=== PATIENT | female | born 1990 | race Caucasian/White ===

== ENCOUNTER 2025-02-10 09:56 | Emergency (ER) | payer MEDICAID, OTHER ==
[~2025-02-10] VITALS: Ht 167.6 cm; Wt 104.0 kg
[~2025-02-10 09:56] MED LIST: NITR-87 MT
[2025-02-10 10:06] VITALS: O2SAT 99
[2025-02-10 10:39] LABS: BASOPHILS % 0.7 % (0.0-2.0); EOSINOPHILS % 2.8 % (0.0-5.0); HEMATOCRIT. 36.2 % (36.0-48.0); HEMOGLOBIN. 11.9 g/dL (12.0-16.0); LYMPHOCYTES % 25.3 % (20.0-50.0); MEAN PLATELET VOLUME 7.6 fl (7.4-10.4); MONOCYTES % 7.3 % (2.0-8.0); NEUTROPHILS % 63.9 % (40.0-76.0); PLATELET 345 x1000/uL (130-400); RED BLOOD CELL COUNT 4.41 mill/uL (4.2-5.4); RED CELL DISTRIBUTION WIDTH 14.6 % (11.6-14.6)
[2025-02-10 10:52] LABS: CLARITY URINE CLEAR (CLEAR); COLOR URINE YELLOW (YELLOW); GLUCOSE URINE NEGATIVE (NEGATIVE); KETONES URINE NEGATIVE (NEGATIVE); LEUKOCYTE ESTERASE URINE 2+ (NEGATIVE); NITRITE URINE NEGATIVE (NEGATIVE); OCCULT BLOOD URINE NEGATIVE (NEGATIVE); PH URINE 7.5 (4.5-8.0); PROTEIN URINE NEGATIVE (NEGATIVE); SPECIFIC GRAVITY URINE 1.021 (1.005-1.030); UROBILINOGEN URINE 0.2 E.U./dL (0.2-1.0)
[2025-02-10 10:53] LABS: CREATININE 0.8 mg/dL (0.6-1.0)
[2025-02-10 10:54] LABS: UREA NITROGEN BLOOD 14 mg/dL (9-23)
[2025-02-10 10:55] LABS: ASPARTATE AMINOTRANSFERASE 18 IU/L (<34)
[2025-02-10 10:56] LABS: BILIRUBIN DIRECT < 0.1 mg/dL (<=3.0); BILIRUBIN TOTAL 0.4 mg/dL (0.1-1.0); PROTEIN TOTAL 7.1 g/dL (6.0-8.3)
[2025-02-10 11:00] LABS: HCG SCREEN NEGATIVE
[2025-02-10 11:22] LABS: SQUAMOUS EPITHELIAL CELL URINE 1+ /lpf (RARE/1+)
[2025-02-10 11:23] LABS: BACTERIA URINE 3+; WBC URINE 50-100 /hpf (0-2)
[2025-02-10] MEDS: KETOROLAC 15MG/ML VIAL IM ONE (11:23)
[2025-02-10 11:24] LABS: RBC URINE NONE SEEN /hpf (0-2)
[2025-02-10] MEDS: ACETAMINOPHEN 325MG TABLET PO ONE (11:24)
[2025-02-10] MEDS ORDERED: CEPH500C2 MT (12:09)
[2025-02-10 12:48] VITALS: BP 121/79; PULSE 77; RESP 16; TEMP 37; O2SAT 99
== END 2025-02-10 12:48 | disposition home or self-care (01) ==
LOC: ER 09:56
DX: N39.0 Urinary tract infection, site not specified (principal); R10.2 Pelvic and perineal pain; E11.9 Type 2 diabetes mellitus without complications; Z79.899 Other long term (current) drug therapy
CPT/HCPCS: 99283; 80076; 80048; 81003; 81025; 84703; 83690; 85025; 87086; 87186; 87077; 36415; 96372; J1885